=== PATIENT | female | born 1985 | race Hispanic/Latino ===

== ENCOUNTER 2022-03-26 18:03 | Day surgery (SDC) | payer BC ==
[2022-03-26 19:15] VITALS: BMI 35.6
[2022-03-26 20:14] LABS: Fetal Membranes Rupture No Membranes Rupture (No Rupture)
[2022-03-26] MEDS ORDERED: hydrALAZINE 20 MG/ML VIAL SLOW IVP PRN (21:23)
[2022-03-26 21:52] LABS: Bilirubin Neg (Negative); Blood, Urine 25 (Negative); Clarity Clear (Clear); Glucose, Urine (Dipstick) Normal (Negative); Ketone, Urine Negative (Negative); Leukocyte Negative (Negative); Nitrite Negative (Negative); Protein, Urine (Dipstick) Negative (Neg-Trace); Specific Gravity, Urine 1.015 (1.002-1.036); Urobilinogen Normal mg/dL (Less than 2)
[2022-03-26 22:07] LABS: RBC/HPF 0-3 HPF (0-3); WBC/HPF 0-3 HPF (0-3)
[2022-03-26 22:11] LABS: Bacteria/HPF 2+ HPF (None Seen); Squamous Epithelial None Seen HPF (0-3)
[2022-03-26 22:12] LABS: Urine Culture Reflex Yes Yes
== END 2022-03-26 21:50 | disposition home or self-care (01) ==
LOC: CSHLD/OP 18:03
PROVIDERS: ATTEND Obstetrics & Gynecology
DX: O99.891 Other specified diseases and conditions complicating pregnancy (principal); N89.8 Other specified noninflammatory disorders of vagina; R82.71 Bacteriuria; O24.415 Gestational diabetes mellitus in pregnancy, controlled by oral hypoglycemic drugs; O09.523 Supervision of elderly multigravida, third trimester; Z3A.39 39 weeks gestation of pregnancy; Z86.16 Personal history of COVID-19; Z91.041 Radiographic dye allergy status
CPT/HCPCS: 81001; 84112; 87086

== ENCOUNTER 2022-03-27 10:20 | Outpatient (CLI) | payer BC ==
[2022-03-27 21:27] LABS: SARS-CoV-2 PCR by NAA Not Detected (NotDetected)
== END 2022-03-27 10:21 | disposition home or self-care (01) ==
LOC: CSHLAB 10:20
PROVIDERS: ATTEND Student in an Organized Health Care Education/Training Program
DX: Z20.822 Contact with and (suspected) exposure to COVID-19 (principal)
CPT/HCPCS: U0003; U0005

== ENCOUNTER 2022-03-28 16:53 | Inpatient (IN) | payer BC ==
[2022-03-28 17:37] VITALS: BMI 36.6
[2022-03-28] MEDS ORDERED: hydrALAZINE 20 MG/ML VIAL SLOW IVP PRN ×3 (18:12→21:25)
[2022-03-28] MEDS ORDERED: Lidocaine 1% (PF) 30 ML VIAL SC PRN (19:10)
[2022-03-28] MEDS ORDERED: Misoprostol 200 MCG TAB PR PRN (19:10)
[2022-03-28] MEDS ORDERED: Acetaminophen 500 MG TAB PO PRN (19:10)
[2022-03-28] MEDS ORDERED: Ibuprofen 800 MG TAB PO PRN (19:10)
[2022-03-28] MEDS ORDERED: Carboprost 250 MCG/ML AMP IM PRN (19:10)
[2022-03-28] MEDS ORDERED: Promethazine HCl 25 MG/ML VIAL IM PRN (19:10)
[2022-03-28] MEDS ORDERED: Ondansetron PF 4 MG/2 ML Vial IVP PRN (19:10)
[2022-03-28] MEDS ORDERED: Lactated Ringer's 1,000 ML IV SCH (20:15)
[2022-03-28] MEDS ORDERED: NS w/ Oxytocin 30 units 500 ML IV SCH ×2 (20:15)
[2022-03-28 20:21] LABS: Hemoglobin 13.4 g/dL (12.0-15.5); Mean Corpuscular Hemoglobin 31.8 pg (27.0-33.0); Mean Corpuscular Volume 90.8 fl (81.6-98.3); Mean Platelet Volume 11.5 fl (7.4-10.4); Platelet Count 206 10x3/uL (150-450); RBC Distribution Width 14.5 % (11.5-14.5); Red Blood Cell (RBC) Count 4.22 10x6/uL (3.90-5.03); White Blood Cell (WBC) Count 9.8 10x3/uL (3.5-10.5)
[2022-03-28] MEDS: Ibuprofen 800 MG TAB PO SCH (20:45)
[2022-03-28 20:52] LABS: Hep B Surf Ag Non-Reactive S/CO (NonReactive); Syphilis Antibody Nonreactive (Nonreactive); Syphilis Antibody Index 0.06 S/CO (<1.00 Non-Reactive)
[2022-03-28 20:53] LABS: HBSAg Index 0.16 S/CO (0-0.99)
[2022-03-28] MEDS ORDERED: Lorazepam 2 MG/ML VIAL SLOW IVP PRN (21:25)
[2022-03-28] MEDS ORDERED: Calcium Gluc 4.6 MEQ/10 ML (100 MG/ML) SLOW IVP PRN (21:25)
[2022-03-28] MEDS ORDERED: Labetalol HCl 100 MG/20 ML VIAL SLOW IVP PRN (21:25)
[2022-03-28] MEDS ORDERED: Magnesium Sulfate 20 gm/500 ml 20 GM/500 ML BAG ONE (21:28)
[2022-03-28] MEDS ORDERED: Magnesium Sulfate 20 gm/500 ml 20 GM/500 ML BAG IVPB SCH (21:30)
[2022-03-28 23:28] LABS: SARS-CoV-2 NAA Rapid Test Not Detected (NotDetected)
[2022-03-29] MEDS ORDERED: Misoprostol 200 MCG TAB VAG PRN (00:07)
[2022-03-29] MEDS ORDERED: hydrALAZINE 20 MG/ML VIAL SLOW IVP PRN (00:07)
[2022-03-29] MEDS ORDERED: Milk Of Magnesia 30 ML UDCUP PO PRN (00:07)
[2022-03-29] MEDS ORDERED: Preparation H Ointment 28 GM TUBE PR PRN (00:07)
[2022-03-29] MEDS ORDERED: Boostrix 0.5 ML (Tdap) VIAL IM ONE (00:07)
[2022-03-29] MEDS ORDERED: Lanolin Ointment 7 GM TUBE TOP PRN (00:07)
[2022-03-29] MEDS ORDERED: diphenhydrAMINE 25 MG CAP PO PRN (00:07)
[2022-03-29] MEDS ORDERED: Bisacodyl 10 MG SUPP PR PRN (00:07)
[2022-03-29] MEDS ORDERED: Ondansetron PF 4 MG/2 ML Vial IVP PRN (00:07)
[2022-03-29] MEDS ORDERED: Docusate 100 MG CAP PO SCH (00:15)
[2022-03-29] MEDS ORDERED: NS w/ Oxytocin 30 units 500 ML IV SCH (00:30)
[2022-03-29] MEDS: Ibuprofen 800 MG TAB PO SCH ×3 (04:06→17:26)
[2022-03-29] MEDS: Magnesium Sulfate 20 gm/500 ml 20 GM/500 ML BAG IVPB SCH ×2 (07:17→17:19)
[2022-03-29] MEDS: Ferrous Sulfate 325 MG TAB PO SCH ×2 (09:15→17:24)
[2022-03-29] MEDS: Prenatal Vitamin 1 TAB PO SCH (09:22)
[2022-03-29] MEDS: Docusate 100 MG CAP PO SCH (09:22)
[2022-03-29] MEDS ORDERED: Labetalol HCl 200 MG TAB PO SCH (21:15)
[2022-03-30] MEDS: Ibuprofen 800 MG TAB PO SCH ×3 (01:25→16:44)
[2022-03-30] MEDS: Docusate 100 MG CAP PO SCH ×3 (06:15→22:05)
[2022-03-30] MEDS ORDERED: Labetalol HCl 200 MG TAB PO SCH (09:00)
[2022-03-30] MEDS ORDERED: Labetalol HCl 100 MG TAB PO SCH (09:00)
[2022-03-30] MEDS: Labetalol HCl 200 MG TAB PO SCH ×2 (09:18→22:06)
[2022-03-30] MEDS: Prenatal Vitamin 1 TAB PO SCH (09:19)
[2022-03-30] MEDS: Ferrous Sulfate 325 MG TAB PO SCH ×2 (13:34→15:06)
[2022-03-31] MEDS: Ibuprofen 800 MG TAB PO SCH ×2 (00:57→08:44)
[2022-03-31] MEDS ORDERED: HYDROcodone/Acetaminophen 5/325 mg Tablet PO PRN ×2 (06:25→06:32)
[2022-03-31] MEDS: Ferrous Sulfate 325 MG TAB PO SCH (08:18)
[2022-03-31] MEDS: Prenatal Vitamin 1 TAB PO SCH (08:44)
[2022-03-31] MEDS: Docusate 100 MG CAP PO SCH (08:44)
[2022-03-31] MEDS ORDERED: Labetalol HCl 100 MG TAB PO SCH (09:00)
[2022-03-31 11:23] VITALS: BP 121/57; TEMP 98
== END 2022-03-31 11:25 | disposition home or self-care (01) | DRG 807 ==
LOC: CSHLD/OP 16:53 → CSHLD 20:24 → CSHPP 03-30 12:44
PROVIDERS: ADMIT Student in an Organized Health Care Education/Training Program; ATTEND Student in an Organized Health Care Education/Training Program
PROC: 10E0XZZ Delivery of Products of Conception, External Approach (ICD-10-PCS; principal; 2022-03-28)
DX: O42.02 Full-term premature rupture of membranes, onset of labor within 24 hours of rupture (principal); Z37.0 Single live birth; O13.4 Gestational [pregnancy-induced] hypertension without significant proteinuria, complicating childbirth; O24.429 Gestational diabetes mellitus in childbirth, unspecified control; O77.0 Labor and delivery complicated by meconium in amniotic fluid; O62.3 Precipitate labor; Z20.822 Contact with and (suspected) exposure to COVID-19; Z3A.39 39 weeks gestation of pregnancy; Z86.16 Personal history of COVID-19; Z79.899 Other long term (current) drug therapy; Z91.041 Radiographic dye allergy status
CPT/HCPCS: 76816; 76819; 85027; 86780; 86850; 86900; 86901; 87340; 99285; J0360; J2590; J3475; U0002